=== PATIENT | male | born 1965 | race Caucasian/White ===

== ENCOUNTER 2017-04-26 12:00 | Emergency (ER) | payer BC, OTHER ==
[2017-04-26 14:29] LABS: KETONE, URINE AUTO RFX NEGATIVE (NEGATIVE); LEUKOCYTE ESTERASE UR AUTO RFX NEGATIVE (NEGATIVE); MUCUS, URINE RFX SMALL (NEGATIVE); NITRITE, URINE AUTO RFX NEGATIVE (NEGATIVE); RBC, URINE AUTO RFX 2 /HPF (0-3); SPECIFIC GRAVITY UR AUTO RFX 1.028 (1.002-1.035); SQUAM EPITHELIAL CELL UR AURFX 0 /HPF (0-6); WBC, URINE AUTO RFX 1 /HPF (0-3)
[2017-04-26] MEDS: KETOROLAC 60 MG/2 ML VIAL (J1885) IM (14:53)
[2017-04-26 16:05] LABS: CHLAMYDIA DNA AMPLIFICATION NEGATIVE (NEGATIVE); GC DNA AMPLIFICATION NEGATIVE (NEGATIVE)
== END 2017-04-26 15:12 | disposition home or self-care (01) ==
LOC: M ED 12:00
DX: S39.002A Unspecified injury of muscle, fascia and tendon of lower back, initial encounter (principal); S39.023A Laceration of muscle, fascia and tendon of pelvis, initial encounter; X50.9XXA Other and unspecified overexertion or strenuous movements or postures, initial encounter; Y92.89 Other specified places as the place of occurrence of the external cause; Y93.B9 Activity, other involving muscle strengthening exercises
CPT/HCPCS: J1885

== ENCOUNTER → 2020-11-23 | Outpatient (CLI) | payer OTHER ==
[~2020-11-23] MED LIST: FISH1000 PO; HYDR-3715 PO; IBUP80TA PO; PRAV80TA PO; ROBA500T PO; VITATAB11 PO
--- NOTE | 2020-11-24 20:47 | REPVR ---
PROCEDURE INFORMATION: Exam: MR Lumbar Spine Without Contrast Exam date and time: 11/23/2020 9:01 AM Age: 55 years old Clinical indication: Low back pain TECHNIQUE: Imaging protocol: Multiplanar magnetic resonance images of the lumbar spine without intravenous contrast. COMPARISON: No relevant prior studies available. FINDINGS: Vertebral body heights are maintained. Multilevel mild Modic type 1 edematous degenerative endplate change, most prominently posteriorly at L3-L4. No cord compression. No abnormal cord signal. Conus medullaris terminates at the L1 level. Approximately 0.6 cm grade 1 anterolisthesis of L5 on S1. Paravertebral soft tissues are unremarkable. L1-L2: No significant canal or foraminal narrowing. L2-L3: Broad-based disc bulge causing mild bilateral foraminal narrowing. No significant canal narrowing. L3-L4: Broad-based disc bulge causes mild bilateral foraminal narrowing. No significant canal narrowing. L4-L5: Right paracentral disc protrusion superimposed over broad-based disc bulge effacing the right lateral recess with slight impingement upon the traversing right L5 nerve root. Along with slight facet hypertrophy there is mild bilateral foraminal narrowing. L5-S1: Combination of anterolisthesis, broad-based disc bulge, and facet hypertrophy cause moderate left and moderate to severe right foraminal narrowing with impingement upon the exiting right L5 nerve root. No significant canal narrowing. IMPRESSION: Multilevel spondylotic changes of the lumbar spine, as detailed above. Electronically signed by: Miguel Angel Lubin On 11/24/2020 20:47:15 PM
== END ==
LOC: M RAD 08:07
PROVIDERS: ATTEND Internal Medicine
DX: M54.16 Radiculopathy, lumbar region (principal)

== ENCOUNTER → 2022-06-24 | Outpatient (CLI) | payer OTHER | LOC: M RAD 10:33 | PROVIDERS: ATTEND Internal Medicine | DX: K46.9 Unspecified abdominal hernia without obstruction or gangrene (principal) ==

== ENCOUNTER 2023-03-05 09:05 | Day surgery (SDC) | payer OTHER ==
[~2023-03-05] VITALS: Ht 177.8 cm; Wt 113.6 kg
[~2023-03-05 09:05] MED LIST changes: +EZET10TA21 PO; +LIDOCAINE 2% 100MG/5ML SDV (FOR ANES.) As Ordered ONE; +NS 1,000 ML IV ONE; +OMEG10002 PO; +ROSU40TA4 PO; +VITA100093 PO; +areds 2 PO; +propofoL 200 MG/20 ML VIAL As Ordered ONE
[2023-03-05] MEDS ORDERED: propofoL 200 MG/20 ML VIAL As Ordered ONE (11:20)
[2023-03-05 11:23] VITALS: TEMP 97.3
[2023-03-05 11:59] VITALS: BP 109/63; O2SAT 95
== END 2023-03-05 12:02 | disposition home or self-care (01) ==
LOC: M OPP 09:05
PROVIDERS: ATTEND Internal Medicine Gastroenterology
DX: Z12.11 Encounter for screening for malignant neoplasm of colon (principal); Z86.010 Personal history of colon polyps; Z80.0 Family history of malignant neoplasm of digestive organs; D12.6 Benign neoplasm of colon, unspecified; K57.30 Diverticulosis of large intestine without perforation or abscess without bleeding; K64.4 Residual hemorrhoidal skin tags; K64.8 Other hemorrhoids; Z87.891 Personal history of nicotine dependence; Z79.02 Long term (current) use of antithrombotics/antiplatelets; Z79.899 Other long term (current) drug therapy; Z88.5 Allergy status to narcotic agent; Z88.6 Allergy status to analgesic agent; Z88.8 Allergy status to other drugs, medicaments and biological substances

== ENCOUNTER → 2024-04-07 | Outpatient (CLI) | payer BC, OTHER ==
[~2024-04-07] MED LIST changes: -LIDOCAINE 2% 100MG/5ML SDV (FOR ANES.) As Ordered ONE; -NS 1,000 ML IV ONE; -ROSU40TA4 PO; +ROSU40TA81 PO; -propofoL 200 MG/20 ML VIAL As Ordered ONE
== END ==
LOC: M RAD 13:29
PROVIDERS: ATTEND Physician Assistant Medical
DX: M19.012 Primary osteoarthritis, left shoulder (principal)